=== PATIENT | male | born 1985 | race Hispanic/Latino ===

== ENCOUNTER 2023-12-03 14:41 | Emergency (ER) | payer SELFPAY ==
[~2023-12-03] VITALS: Ht 195.6 cm; Wt 131.5 kg
[2023-12-03] MEDS: TETANUS/DIPHTHERIA TOX ADULT 0.5 ML SYR IM ONE (15:40)
[2023-12-03] MEDS: KETOROLAC TROMETHAMINE 60 MG/2 ML VIAL IM ONE (15:47)
[2023-12-03] MEDS ORDERED: HYDROCODON-ACE1 EA11 PO (17:08)
[2023-12-03 17:09] VITALS: O2SAT 100
== END 2023-12-03 17:33 | disposition home or self-care (01) ==
LOC: ER 15:15
DX: S22.41XA Multiple fractures of ribs, right side, initial encounter for closed fracture (principal); V29.99XA Rider (driver) (passenger) of other motorcycle injured in unspecified traffic accident, initial encounter; Y92.488 Other paved roadways as the place of occurrence of the external cause; I10 Essential (primary) hypertension
CPT/HCPCS: 71250; 90471; 99284

== ENCOUNTER 2024-04-03 12:43 | Emergency (ER) | payer BC ==
[~2024-04-03] VITALS: Ht 195.6 cm; Wt 131.5 kg
[~2024-04-03 12:43] MED LIST: HYDROCODON-ACE1 EA11 PO
[2024-04-03] MEDS: KETOROLAC TROMETHAMINE 30 MG/ML VIAL IV STA (14:58)
[2024-04-03] MEDS ORDERED: PREDNISONE20 MG PO (15:56)
[2024-04-03] MEDS ORDERED: COLCHICINE0.6 M1 PO (15:58)
[2024-04-03] MEDS ORDERED: PREDNISONE 20 MG TAB ONE (16:01)
[2024-04-03 16:03] VITALS: PULSE 70; RESP 18; TEMP 98.6; O2SAT 96
[2024-04-03] MEDS: PREDNISONE 20 MG TAB PO ONE (18:02)
== END 2024-04-03 16:06 | disposition home or self-care (01) ==
LOC: FSED 12:45
DX: M79.672 Pain in left foot (principal); M10.9 Gout, unspecified; I10 Essential (primary) hypertension; E66.01 Morbid (severe) obesity due to excess calories
CPT/HCPCS: 73630; 80053; 85025; 99284; J1885; J7512